=== PATIENT | male | born 1985 | race Caucasian/White ===

== ENCOUNTER 2017-02-09 12:56 | Emergency (ER) | payer BC ==
[~2017-02-09] VITALS: Ht 170.2 cm; Wt 57.1 kg
[2017-02-09 13:06] VITALS: BP 161/96; Ht 170.2 cm; Wt 57.1 kg
== END 2017-02-09 18:07 | disposition home or self-care (01) ==
LOC: ED 12:56
DX: J45.901 Unspecified asthma with (acute) exacerbation (principal); Z88.0 Allergy status to penicillin
CPT/HCPCS: J1100; J7613; J7644